=== PATIENT | female | born 1990 | race Hispanic/Latino ===

== ENCOUNTER 2021-07-11 06:22 | Emergency (ER) | payer SELFPAY ==
[2021-07-11] MEDS ORDERED: HYDROmorphone 1 MG/1 ML INJ IM ONE (07:06)
[2021-07-11] MEDS ORDERED: SODIUM CHLORIDE 0.9% IRR 500 ML BOTTLE IR ONE (07:32)
[2021-07-11] MEDS ORDERED: FLUORESCEIN 1 MG STRIP OP ONE (07:32)
[2021-07-11] MEDS ORDERED: TETRACAINE 0.5% OPHTH SOLN 4ML OD STA (07:32)
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
[2021-07-11 08:44] LABS: Hematocrit 41.7 % (30.3-42.9); Hemoglobin 13.9 gm/dl (10.1-14.3); Mean Corpuscular HGB Conc 34 % (30-34); Mean Corpuscular Volume 93 fl (79-97); Platelet Count 282 K/mm3 (140-440); Red Blood Count 4.48 M/mm3 (3.65-5.03); Red Cell Distribution Width 12.8 % (13.2-15.2)
[2021-07-11 08:55] LABS: Alanine Aminotransferase 10 units/L (7-56); Albumin 4.3 g/dL (3.9-5); BUN/Creatinine Ratio 17; Blood Urea Nitrogen 12 mg/dL (7-17); Hemolysis Index 26
[2021-07-11 09:08] LABS: HCG,Quantitative < 2 mIU/mL (0-4)
[2021-07-11 09:20] LABS: Basophils % (Manual) 0 % (0.0-1.8); Eosinophils % (Manual) 0 % (0.0-4.3); Total Cells Counted 100
[2021-07-11 09:21] LABS: Platelet Estimate Consistent w Auto; RBC Morphology Normal
[2021-07-11] MEDS ORDERED: HYDROmorphone 1 MG/1 ML INJ IV ONE ×3 (09:24→14:20)
[2021-07-11] MEDS ORDERED: ONDANSETRON 4 MG/2 ML INJ IV ONE (09:24)
[2021-07-11] MEDS ORDERED: metroNIDAZOLE 500 MG TAB PO ONE (09:24)
[2021-07-11] MEDS ORDERED: AZITHROMYCIN 1 GM ORAL PWDR PACKET PO ONE (09:24)
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
--- NOTE | 2021-07-11 10:25 | Cat Scan Report ---
CT FACIAL 07/11/2021 HISTORY: closed head injury. Trauma FINDINGS: CT images of the facial bones and orbits were obtained. Images are evaluated in the axial, coronal, and sagittal plane. There is a comminuted depressed fracture of the right orbital floor. Small amount of intraorbital ayesha pose tissue extends through the floor defect. The inferior rectus does not appear to be displaced or entrapped at this time. Emily graph there is a small amount of air density present in the floor of the orbit, which appears to be extraconal. Soft tissue density air and extended into the periorbital soft tissues around the inferior and lateral aspects of the globe, with subcutaneous emphysema present in the inferior periorbital soft tissues. Irregularity of the nasal bones is present bilaterally. This may be due to acute fracture, although c hronic fracture, similar appearance. Correlation for point tenderness over the nasal bones without to confirm acuity. Secretions and fluid are present in the right maxillary sinus, with evidence of relatively hyperdense blood products layering dependently. IMPRESSION: Comminuted depressed right orbital for fracture, without evidence of inferior rectus musc le entrapment. See above description. All CT scans at this location are performed using dose reduction to ALARA by means of automated expos ure control. Signer Name: Ronald Terrell MD Signed: 07/11/2021 10:20 AM Workstation Name: [id number]
--- NOTE | 2021-07-11 10:54 | XRay Report ---
LEFT KNEE 3 VIEW(S) INDICATION / CLINICAL INFORMATION: left knee pain COMPARISON: None available. FINDINGS: BONES / JOINT(S): No acute fracture or subluxation. No significant arthritis. Small joint effusion in the suprapatellar recess. SOFT TISSUES: No significant abnormality. ADDITIONAL FINDINGS: None. IMPRESSION: 1. No acute findings. Signer Name: Gabriella Cruz MD Signed: 07/11/2021 10:49 AM Workstation Name: [id number]
[2021-07-11] MEDS ORDERED: RALTEGRAVIR POTASSIUM 400 MG TAB PO STA (11:45)
[2021-07-11] MEDS ORDERED: TENOFOVIR 300 MG TAB PO STA (11:45)
[2021-07-11] MEDS ORDERED: EMTRICITABINE 200 MG CAP PO STA (11:45)
[2021-07-11 13:41] LABS: Hepatitis B Surface Antigen Non-Reactive (Negative); Hepatitis C Virus Antibody Non-Reactive (NonReactive)
[2021-07-11 15:05] VITALS: BP 111/63
== END 2021-07-11 15:06 | disposition short-term general hospital (02) ==
LOC: ED 06:22
DX: S02.31XA Fracture of orbital floor, right side, initial encounter for closed fracture (principal); S00.211A Abrasion of right eyelid and periocular area, initial encounter; S09.90XA Unspecified injury of head, initial encounter; M25.562 Pain in left knee; Y08.89XA Assault by other specified means, initial encounter; Y93.89 Activity, other specified; Y92.89 Other specified places as the place of occurrence of the external cause; Y99.8 Other external cause status
CPT/HCPCS: 36415; 70450; 70486; 73562; 80053; 80074; 83690; 84702; 85007; 85025; 86592; 87806; 96365; 96366; 96372; 96375; 96376; 99291; J0696; J1170; J2405